=== PATIENT | female | born 2000 | race Caucasian/White ===

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

== ENCOUNTER 2022-05-15 12:58 | Emergency (ER) | payer BC ==
[2022-05-15] MEDS ORDERED: Sodium Chloride 0.9% 10 ML Syringe FLUSH PRN (13:18)
[2022-05-15] MEDS ORDERED: Sodium Chloride 0.9% 1,000 ML IV ONE (13:18)
[2022-05-15 13:32] VITALS: BP 125/80; PULSE 105
[2022-05-15 13:55] LABS: CHLORIDE,CL 103 mEq/L (98-106); SODIUM,NA 140 mEq/L (136-145)
[2022-05-15 14:05] LABS: ESTIMATED GFR 130 mL/min (>=60)
== END 2022-05-15 14:39 | disposition home or self-care (01) ==
LOC: CC.ED 12:58
DX: E86.0 Dehydration (principal); Z88.2 Allergy status to sulfonamides
CPT/HCPCS: 36415; 80053; 80307; 81003; 81025; 83735; 85025; 93005; 93010; 96360; 99284; 99284-25; J7030